=== PATIENT | female | born 1965 | race African-American/Black ===

== ENCOUNTER 2018-08-23 14:18 | Emergency (ER) | payer OTHER ==
[~2018-08-23] VITALS: Ht 154.9 cm; Wt 65.3 kg
[~2018-08-23 14:18] MED LIST: ASPIRIN325 PO; NORCO 10-325 T1 EACH PO; PREDNISONE 20 M20 M1 PO; PROTONIX 20 MG20 M1 PO; SENNA8.6 MG PO
[2018-08-23] MEDS ORDERED: NAPROSYN500 MG PO (15:10)
[2018-08-23] MEDS ORDERED: FLEXERIL PO (15:10)
[2018-08-23 16:30] VITALS: BP 171/108
== END 2018-08-23 16:31 | disposition home or self-care (01) ==
LOC: ER 14:18
DX: M54.42 Lumbago with sciatica, left side (principal); G89.29 Other chronic pain; F17.210 Nicotine dependence, cigarettes, uncomplicated; I10 Essential (primary) hypertension; Z90.49 Acquired absence of other specified parts of digestive tract; Z88.0 Allergy status to penicillin

== ENCOUNTER 2018-09-06 08:30 | Emergency (ER) | payer OTHER ==
[~2018-09-06] VITALS: Ht 154.9 cm; Wt 65.3 kg
[2018-09-06 08:30] VITALS: BP 147/63
[~2018-09-06 08:30] MED LIST changes: +FLEXERIL PO; +NAPROSYN500 MG PO
[2018-09-06] MEDS ORDERED: TRAMADOL 50 MG50 MG PO (09:14)
== END 2018-09-06 09:26 | disposition home or self-care (01) ==
LOC: ER 08:30
DX: T23.202A Burn of second degree of left hand, unspecified site, initial encounter (principal); T31.0 Burns involving less than 10% of body surface; F17.210 Nicotine dependence, cigarettes, uncomplicated; I10 Essential (primary) hypertension; Z90.49 Acquired absence of other specified parts of digestive tract; Z88.0 Allergy status to penicillin; X10.2XXA Contact with fats and cooking oils, initial encounter

== ENCOUNTER 2018-09-19 15:43 | Emergency (ER) | payer OTHER ==
[~2018-09-19] VITALS: Ht 154.9 cm; Wt 65.8 kg
[~2018-09-19 15:43] MED LIST changes: +TRAMADOL 50 MG50 MG PO
[2018-09-19] MEDS ORDERED: LIDOCAINE PAIN1 EACH TOP (16:53)
[2018-09-19] MEDS ORDERED: FLEXERIL PO (16:53)
[2018-09-19] MEDS ORDERED: TRAMADOL 50 MG50 MG PO (16:53)
[2018-09-19 17:41] VITALS: BP 145/94
== END 2018-09-19 17:41 | disposition home or self-care (01) ==
LOC: ER 15:43
DX: M54.32 Sciatica, left side (principal); I10 Essential (primary) hypertension; F17.210 Nicotine dependence, cigarettes, uncomplicated; Z90.49 Acquired absence of other specified parts of digestive tract; Z88.0 Allergy status to penicillin

== ENCOUNTER 2019-02-16 12:35 | Emergency (ER) | payer OTHER ==
[~2019-02-16] VITALS: Ht 154.9 cm; Wt 66.2 kg
[2019-02-16 12:35] VITALS: BP 150/87
[~2019-02-16 12:35] MED LIST changes: +LIDOCAINE PAIN1 EACH TOP
[2019-02-16] MEDS ORDERED: OXYCODONE HCL 55 MG PO (13:27)
== END 2019-02-16 13:34 | disposition home or self-care (01) ==
LOC: ER 12:35
DX: S13.4XXA Sprain of ligaments of cervical spine, initial encounter (principal); M54.5 Low back pain; I10 Essential (primary) hypertension; Z90.49 Acquired absence of other specified parts of digestive tract; F17.210 Nicotine dependence, cigarettes, uncomplicated; Z88.0 Allergy status to penicillin; W08.XXXA Fall from other furniture, initial encounter; Y93.89 Activity, other specified; Y92.89 Other specified places as the place of occurrence of the external cause; Y99.8 Other external cause status

== ENCOUNTER → 2020-04-21 | Emergency (ER) | payer OTHER ==
[~2020-04-21] VITALS: Ht 154.9 cm; Wt 65.8 kg
[~2020-04-21] MED LIST changes: +CORTISPORIN OTI10 M2 OTIC; +OXYCODONE HCL 55 MG PO
[2020-04-21 19:21] VITALS: BP 152/83
== END ==
LOC: ER 18:41
DX: H60.91 Unspecified otitis externa, right ear (principal); I10 Essential (primary) hypertension; F17.210 Nicotine dependence, cigarettes, uncomplicated; Z90.49 Acquired absence of other specified parts of digestive tract; Z79.899 Other long term (current) drug therapy; Z88.0 Allergy status to penicillin; Z88.8 Allergy status to other drugs, medicaments and biological substances

== ENCOUNTER 2020-06-22 14:56 | Emergency (ER) | payer OTHER ==
[~2020-06-22] VITALS: Ht 154.9 cm; Wt 65.3 kg
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
[2020-06-22] MEDS ORDERED: PROAIR HFA8.5 GM INH (15:09)
[2020-06-22 17:40] VITALS: BP 152/59
[2020-06-22] MEDS ORDERED: NAPROSYN500 MG PO (17:43)
[2020-06-22] MEDS ORDERED: FLEXERIL PO (17:43)
== END 2020-06-22 17:46 | disposition home or self-care (01) ==
LOC: ER 14:56
DX: M79.605 Pain in left leg (principal); M54.5 Low back pain; I10 Essential (primary) hypertension; F17.210 Nicotine dependence, cigarettes, uncomplicated; Z90.49 Acquired absence of other specified parts of digestive tract; Z79.899 Other long term (current) drug therapy; Z88.0 Allergy status to penicillin; Z88.8 Allergy status to other drugs, medicaments and biological substances; W01.0XXA Fall on same level from slipping, tripping and stumbling without subsequent striking against object, initial encounter; Y93.89 Activity, other specified; Y92.89 Other specified places as the place of occurrence of the external cause; Y99.8 Other external cause status

== ENCOUNTER 2020-09-22 11:46 | Emergency (ER) | payer OTHER ==
[~2020-09-22] VITALS: Ht 154.9 cm; Wt 66.7 kg
[~2020-09-22 11:46] MED LIST changes: +PROAIR HFA8.5 GM INH
[2020-09-22 13:00] VITALS: BP 152/78
== END 2020-09-22 13:35 | disposition home or self-care (01) ==
LOC: ER 11:46
DX: G89.18 Other acute postprocedural pain (principal); R22.42 Localized swelling, mass and lump, left lower limb; F17.210 Nicotine dependence, cigarettes, uncomplicated; I10 Essential (primary) hypertension; Z88.0 Allergy status to penicillin; Z88.8 Allergy status to other drugs, medicaments and biological substances; Z79.899 Other long term (current) drug therapy; Z90.49 Acquired absence of other specified parts of digestive tract